=== PATIENT | female | born 1990 | race Caucasian/White ===

== ENCOUNTER 2018-04-08 13:16 | Inpatient (IN) | payer BC ==
[2018-04-08] MEDS: LACTATED RINGER'S 1,000 ML IV ×3 (13:58→22:57)
[2018-04-08] MEDS ORDERED: OXYTOCIN 30 UNITS/LR 500 ML IV ×2 (14:00→16:22)
[2018-04-08] MEDS ORDERED: CARBOPROST 250 MCG INJ IM (14:00)
[2018-04-08] MEDS ORDERED: MISOPROSTOL 200 MCG TAB PR (14:00)
[2018-04-08] MEDS ORDERED: METHYLERGONOVINE 0.2 MG INJ IM (14:00)
[2018-04-08 14:05] LABS: ADD MAN DIFF? NO
[2018-04-08 14:08] LABS: WHITE BLOOD COUNT 9.7 10^3/ul (4.8-10.8)
[2018-04-08 14:08] LABS: BASOPHILS % 0.4 % (0.0-2.0); EOSINOPHILS # 0.1 10^3/ul (0.0-0.5); EOSINOPHILS % 0.9 % (0.0-7.0); HEMATOCRIT 38.9 % (37.0-47.0); HEMOGLOBIN 12.9 g/dl (12.0-16.0); LYMPHOCYTES # 2.5 10^3/ul (0.8-2.9); LYMPHOCYTES % 25.6 % (15.0-51.0); MEAN CORPUSCULAR HEMOGLOBIN 27.4 pg (29.0-33.0); MEAN CORPUSCULAR HGB CONC 33.2 g/dl (32.0-37.0); MEAN CORPUSCULAR VOLUME 82.6 fl (82.0-101.0); MONOCYTE # 0.5 10^3/ul (0.3-0.9); MONOCYTES % 5.5 % (0.0-11.0); NEUTROPHIL # 6.4 10^3/ul (1.6-7.5); PLATELET COUNT 247 10^3/UL (140-415); RED BLOOD COUNT 4.71 10^6/ul (4.20-5.40); RED CELL DISTRIBUTION WIDTH 13.3 % (11.5-14.5)
[2018-04-08 14:28] LABS: INR 0.88; PT RATIO 0.9
[2018-04-08 14:29] LABS: PARTIAL THROMBOPLASTIN TIME 26.7 Sec (23.0-35.0)
[2018-04-08 15:04] LABS: HEPATITIS B SURFACE ANTIGEN NEGATIVE (NEGATIVE)
[2018-04-08] MEDS ORDERED: DEXAMETHASONE 4 MG/ML 1 ML INJ (15:26)
[2018-04-08] MEDS ORDERED: ONDANSETRON 4 MG INJ (15:27)
[2018-04-08] MEDS ORDERED: morphine SULFATE/PF (10 MG/10 ML) INJ (15:36)
[2018-04-08] MEDS ORDERED: PHENYLephrine (100 MCG/ML) 10ML SYG (15:36)
[2018-04-08] MEDS ORDERED: ONDANSETRON 4 MG INJ IV (16:00)
[2018-04-08] MEDS ORDERED: DIPHENHYDRAMINE 50 MG INJ IV (16:00)
[2018-04-08] MEDS ORDERED: NALOXONE (0.4 MG/ML) INJ IV (16:00)
[2018-04-08] MEDS ORDERED: ZOLPIDEM 5 MG TAB PO (16:00)
[2018-04-08] MEDS ORDERED: HYDROmorphONE 0.5 MG/0.5 ML SYG IV (16:00)
[2018-04-08] MEDS: CEFAZOLIN 2 GM/50 ML (PMX) 50 ML IVPB (17:28)
[2018-04-08] MEDS: KETOROLAC 30 MG INJ IV (17:43)
[2018-04-08] MEDS: OXYTOCIN 30 UNITS/LR 500 ML IV (17:50)
[2018-04-08] MEDS: AZITHROMYCIN 500MG/NS (PMX) 250 ML IVPB (18:20)
[2018-04-08 19:03] LABS: RAPID PLASMA REAGIN NONREACTIVE (NR)
[2018-04-08] MEDS: HYDROmorphONE 0.5 MG/0.5 ML SYG IV (21:41)
[2018-04-09] MEDS: KETOROLAC 30 MG INJ IV ×2 (04:52→12:37)
[2018-04-09] MEDS: CEFAZOLIN 2 GM/50 ML (PMX) 50 ML IVPB ×3 (05:25→21:28)
[2018-04-09] MEDS ORDERED: METHYLERGONOVINE 0.2 MG INJ IM (05:30)
[2018-04-09] MEDS ORDERED: NA PHOSPHATE/BIPHOS 133 ML ENEMA PR (05:30)
[2018-04-09] MEDS ORDERED: MISOPROSTOL 200 MCG TAB PR (05:30)
[2018-04-09] MEDS ORDERED: OXYTOCIN 30 UNITS/LR 500 ML IV (05:30)
[2018-04-09] MEDS ORDERED: HYDROCODONE/APAP (5/325) TAB PO (05:30)
[2018-04-09] MEDS: CLINDAMYCIN 300 MG CAP PO ×4 (05:30→23:43)
[2018-04-09] MEDS ORDERED: CARBOPROST 250 MCG INJ IM (05:30)
[2018-04-09] MEDS ORDERED: LANOLIN HPA 1 PKT TOP (05:30)
[2018-04-09] MEDS: LACTATED RINGER'S 1,000 ML IV ×2 (06:28→21:26)
[2018-04-09 08:58] LABS: ADD MAN DIFF? NO
[2018-04-09 09:01] LABS: WHITE BLOOD COUNT 14.4 10^3/ul (4.8-10.8)
[2018-04-09 09:01] LABS: BASOPHILS % 0.3 % (0.0-2.0); EOSINOPHILS % 0.1 % (0.0-7.0); HEMATOCRIT 25.7 % (37.0-47.0); HEMOGLOBIN 8.9 g/dl (12.0-16.0); LYMPHOCYTES # 2.5 10^3/ul (0.8-2.9); LYMPHOCYTES % 17.4 % (15.0-51.0); MEAN CORPUSCULAR HEMOGLOBIN 28.3 pg (29.0-33.0); MEAN CORPUSCULAR HGB CONC 34.6 g/dl (32.0-37.0); MEAN CORPUSCULAR VOLUME 81.8 fl (82.0-101.0); MEAN PLATELET VOLUME 11.4 fl (7.4-10.4); MONOCYTE # 1.1 10^3/ul (0.3-0.9); MONOCYTES % 7.7 % (0.0-11.0); NEUTROPHIL # 10.6 10^3/ul (1.6-7.5); NEUTROPHILS % 73.7 % (39.0-77.0); PLATELET COUNT 214 10^3/UL (140-415); RED BLOOD COUNT 3.14 10^6/ul (4.20-5.40); RED CELL DISTRIBUTION WIDTH 13.1 % (11.5-14.5)
[2018-04-09] MEDS: SENNA/DOCUSATE NA (8.6MG/50MG) TAB PO ×2 (10:39→21:24)
[2018-04-09] MEDS: BISACODYL 10 MG SUPP PR (17:22)
[2018-04-09] MEDS: IBUPROFEN 800 MG TAB PO ×2 (17:25→21:24)
[2018-04-09] MEDS: OXYCODONE/ACETAMINOPHEN (5/325) TAB PO (20:20)
[2018-04-10] MEDS: CLINDAMYCIN 300 MG CAP PO ×3 (05:30→18:16)
[2018-04-10] MEDS: IBUPROFEN 800 MG TAB PO ×3 (05:34→21:44)
[2018-04-10] MEDS: LACTATED RINGER'S 1,000 ML IV ×3 (05:35→21:35)
[2018-04-10] MEDS: SENNA/DOCUSATE NA (8.6MG/50MG) TAB PO ×2 (09:15→21:44)
[2018-04-10] MEDS: OXYCODONE/ACETAMINOPHEN (5/325) TAB PO (12:05)
[2018-04-10] MEDS: ACETAMINOPHEN 325 MG TAB PO ×2 (13:35→18:54)
[2018-04-11] MEDS ORDERED: DIPHTH/TET/ACEL PERTUSS (ADULT) 0.5 ML VIAL IM* (09:00)
[2018-04-11] MEDS ORDERED: MEASLES,MUMPS,RUBELLA VACCINE INJ SC* (09:00)
[2018-04-11] MEDS ORDERED: INFLUENZA VIRUS VACCINE 0.5 ML (DISPENSING) IM* (10:00)
== END 2018-04-10 23:35 | disposition home or self-care (01) | DRG 788 ==
LOC: L-D 13:16 → PP1 19:43
PROVIDERS: Obstetrics & Gynecology
PROC: 10D00Z1 Extraction of Products of Conception, Low, Open Approach (ICD-10-PCS; principal; 2018-04-08 15:30)
DX: O34.211 Maternal care for low transverse scar from previous cesarean delivery (principal); Z3A.38 38 weeks gestation of pregnancy; Z37.0 Single live birth
CPT/HCPCS: 85025; 85610; 85730; 86592; 86850; 86900; 86901; 87340; 99464